=== PATIENT | female | born 1940 | race Caucasian/White ===

== ENCOUNTER 2021-03-04 16:09 | Observation (INO) | payer MEDICARE, MEDICAID ==
[~2021-03-04] VITALS: Ht 170.2 cm; Wt 108.8 kg
[2021-03-04 16:10] VITALS: BP 120/82
--- NOTE | 2021-03-04 16:23 | ED Neurological Problem ---
General Stated Complaint: DIZZNESS,NAUSEA,VOMITTING Source: patient, EMS Exam Limitations: no limitations History of Present Illness Date Seen by Provider: Mar 04, 2021 Time Seen by Provider: 16:10 Initial Comments 80yoF with PMH of afib on eliquis coming in via EMS due to dizziness. Last normal around noon today but she isn't exactly sure. She was eating a large lunch and she felt like she ate too much. Shortly after felt light headed and like the room was spinning. Began vomiting after this. Symptoms continued until she finally called and ambulance. Per EMS glucose was 100, EKG with afib. They said she was 89% on RA but had a lot of nail ukrainian on. The patient says she is never really had anything like this happen before. Chris es any headache, chest pain, shortness of breath, abdominal pain, current nausea, focal weakness or numbness, voice changes, or any other concerns. She did take her Eliquis this morning. Allergies and Home Medications Allergies Coded Allergies: No Known Drug Allergies (Unverified , 03/04/21) Patient Home Medication List Home Medication List Reviewed: Yes Review of Systems Review of Systems Constitutional: No chills, No fever Eyes: Denies Blurred Vision; Other (Vertigo) Ears, Nose, Mouth, Throat: denies ear pain Respiratory: No cough, No short of breath Cardiovascular: No chest pain Gastrointestinal: No abdominal pain; nausea, vomiting Genitourinary: no symptoms reported Musculoskeletal: no symptoms reported Skin: no symptoms reported Psychiatric/Neurological: No Symptoms Reported Endocrine: No Symptoms Reported Hematologic/Lymphatic: No Symptoms Reported All Other Systems Reviewed Negative Unless Noted: Yes Past Shpojfq-Cawpnc-Fvlato Hx Patient Social History Tobacco Use?: No Physical Exam Vital Signs Vital Signs - First Documented Capillary Refill : Height, Weight, BMI Height: '" Weight: lbs. oz. kg; BMI Method: General Appearance: WD/WN, no apparent distress HEENT: PERRL/EOMI, normal ENT inspection, pharynx normal, other (Lateral gaze nystagmus) Neck: non-tender, full range of motion, supple, normal inspection Respiratory: chest non-tender, lungs clear, normal breath sounds, no respi ratory distress, no accessory muscle use Cardiovascular: no edema, no murmur, irregularly irregular Gastrointestinal: normal bowel sounds, non tender, soft; No distended, No guarding, No rebound Back: normal inspection, no CVA tenderness, no vertebral tenderness Extremities: normal range of motion, non-tender, normal inspection, no pedal edema, no calf tenderness, normal capillary refill Neurologic/Psychiatric: cash person II-XII nml as tested, no motor/sensory deficits, alert, normal mood/affect, oriented x 3, other (Normal arulfr-xm-vlwe, normal sdwe-ow-uury, patient unable to stand because of dizziness, but is not preferentially falling to the other side) Crainal Nerves: normal hearing, normal speech, PERRL Coordination/Gait: normal finger to nose, normal gait Motor/Sensory: no motor deficit, no sensory deficit Skin: normal color, warm/dry Lymphatic: no adenopathy Progress/Results/Core Measures Results/Orders Lab Results Laboratory Tests Test 03/04/21 16:15 03/04/21 16:39 Range/Units White Blood Count 7.2 4.3-11.0 10^3/uL Red Blood Count 4.71 3.80-5.11 10^6/uL Hemoglobin 13.8 11.5-16.0 g/dL Hematocrit 42 35-52 % Mean Corpuscular Volume 89 80-99 fL Mean Corpuscular Hemoglobin 29 25-34 pg Mean Corpuscular Hemoglobin Concent 33 32-36 g/dL Red Cell Distribution Width 13.1 10.0-14.5 % Platelet Count 239 130-400 10^3/uL Mean Platelet Volume 10.6 9.0-12.2 fL Immature Granulocyte % (Auto) 0 % Neutrophils (%) (Auto) 65 42-75 % Lymphocytes (%) (Auto) 26 12-44 % Monocytes (%) (Auto) 8 0-12 % Eosinophils (%) (Auto) 1 0-10 % Basophils (%) (Auto) 0 0-10 % Neutrophils # (Auto) 4.7 1.8-7.8 X 10^3 Lymphocytes # (Auto) 1.9 1.0-4.0 X 10^3 Monocytes # (Auto) 0.5 0.0-1.0 X 10^3 Eosinophils # (Auto) 0.1 0.0-0.3 10^3/uL Basophils # (Auto) 0.0 0.0-0.1 10^3/uL Immature Granulocyte # (Auto) 0.0 0.0-0.1 10^3/uL Sodium Level 136 135-145 MMOL/L Potassium Level 4.0 3.6-5.0 MMOL/L Chloride Level 100 98-107 MMOL/L Carbon Dioxide Level 25 21-32 MMOL/L Anion Gap 11 5-14 MMOL/L Blood Urea Nitrogen 12 7-18 MG/DL Creatinine 0.88 0.60-1.30 MG/DL Estimat Glomerular Filtration Rate 62 BUN/Creatinine Ratio 14 Glucose Level 136 H 70-105 MG/DL Calcium Level 9.8 8.5-10.1 MG/DL Corrected Calcium 9.6 8.5-10.1 MG/DL Total Bilirubin 0.7 0.1-1.0 MG/DL Aspartate Amino Transf (AST/SGOT) 22 5-34 U/L Alanine Aminotransferase (ALT/SGPT) 17 0-55 U/L Alkaline Phosphatase 46 40-136 U/L Troponin I < 0.30 <0.30 NG/ML Pro-B-Type Natriuretic Peptide 1761.0 H <75.0 PG/ML Total Protein 7.1 6.4-8.2 GM/DL Albumin 4.2 3.2-4.5 GM/DL Prothrombin Time 16.1 H 12.2-14.7 SEC INR Comment 1.3 0.8-1.4 Activated Partial Thromboplast Time 29 24-35 SEC D-Dimer 0.36 0.00-0.49 UG/ML My Orders Orders - LAMAR OLSON MD Cbc With Automated Diff (03/04/21 16:23) Protime With Inr (03/04/21 16:23) Partial Thromboplastin Time (03/04/21 16:23) Comprehensive Metabolic Panel (03/04/21 16:23) Fibrin Degradation Products (03/04/21 16:23) Troponin I Fs (03/04/21 16:23) Ua Culture If Indicated (03/04/21 16:23) Chest 1 View Ap/Pa Only (03/04/21 16:23) Ekg Tracing (03/04/21 16:23) Ed Iv/Invasive Line Start (03/04/21 16:23) Ed Iv/Invasive Line Start (03/04/21 16:23) Vital Signs Stroke Patient Q15M (03/04/21 16:23) O2 (03/04/21 16:23) Monitor-Rhythm Ecg Trace Only (03/04/21 16:23) Dysphagia Screening Tool (03/04/21 16:23) Ct Angio Head/Neck (03/04/21 16:23) Probnp Fs (03/04/21 16:23) Lactated Ringers (Lr 1000 Ml Iv Solution (03/04/21 16:30) Iohexol Injection (Omnipaque 350 Mg/Ml 1 (03/04/21 17:30) Received Contrast (Hold Metformin- Contr (03/04/21 17:30) Sodium Chloride Flush (Catheter Flush Sy (03/04/21 17:30) Ns (Ivpb) (Sodium Chloride 0.9% Ivpb Bag (03/04/21 17:30) Medications Given in ED Current Medications Medications Dose Ordered Sig/Handy Route Start Time Stop Time Status Last Admin Dose Admin Iohexol 75 ml ONCE ONCE IV 03/04/21 17:30 03/04/21 17:31 DC 03/04/21 18:11 75 ML Sodium Chloride 10 ml NEEDED PRN IV 03/04/21 17:30 03/04/21 18:12 10 ML Sodium Chloride 100 ml ONCE ONCE IV 03/04/21 17:30 03/04/21 17:31 DC 03/04/21 18:12 100 ML Vital Signs/I&O 03/04/21 03/04/21 03/04/21 16:10 16:10 16:10 Temp 35.7 Pulse 78 78 Resp 16 17 B/P (MAP) 120/82 (95) 120/82 Pulse Ox 95 95 95 O2 Delivery Nasal Cannula Nasal Cannula O2 Flow Rate 2.00 2.00 Progress Progress Note : Progress Note 80-year-old female with above history coming in due to lightheadedness and difficulty standing because of this with episodes of vomiting. ABCs were intact and vitals were stable on presentation although she is chronically in A. fib. EKG showing her in A. fib. Initial blood pressure 129/71 here. EMS reports her glucose was 100. Neuro exam unremarkable other than the nystagmus as well as difficulty standing due to wanting to fall over because of dizziness. This does not localize to either side. Symptoms do worsen when I move her head which points to a peripheral cause of her vertigo. I did call and discussed the case with the neurologist on-call at [facility] Given the patient's time course of being right around 4 and half hours, her age, and she did take Eliquis, she recommended against tenecteplase at this time. She did recommend getting a CT/CTA of the head and neck to see if there is any large vessel occlusion. She also recommended admission for MRI of the brain to fully rule out stroke. CTA was negative for an LVO. I called and discussed the case with Dr. Montejo. The patient will be admitted under observation status to complete her MRI. Initial ECG Impression Date: Mar 04, 2021 Initial ECG Impression Time: 16:16 Initial ECG Rate: 80 Initial ECG Rhythm: A Fib/Flutter Comment Narrow QRS, normal axis, T wave flattening in the inferior and lateral leads Diagnostic Imaging Diagonstic Imaging: Xray, CT (CTA head and neck) Plain Films/CT/US/NM/MRI: chest [facility] [place] [place] NAME: SHAREE AUSTIN MED REC#: [id number] PT STATUS: REG ER : 1940 PHYSICIAN: LAMAR OLSON MD ADMIT DATE: 03/04/21/ER FS Draft Date of Exam:03/04/21 CHEST 1 VIEW AP/PA ONLY Indication: Weakness with irregular heart rate. No priors. 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 There is a calcified granuloma in the left lower lobe, heart size is grossly unremarkable. No overt vascular congestion. No focal consolidation, effusion or pneumothorax. Impression: Large retrocardiac hernia, no acute-appearing cardiopulmonary abnormality. Dictated on workstation # [id number] Dict: 03/04/21 1646 Trans: 03/04/211647 CVB [id number] Interpreted by: ODETTE UHGHES Electronically signed by: [facility] [place], [place] NAME: SHAREE AUSTIN MED REC#: [id number] PT STATUS: REG ER : 1940 PHYSICIAN: LAMAR OLSON MD ADMIT DATE: 03/04/21/ER FS Draft Date of Exam:03/04/21 CT ANGIO HEAD/NECK PROCEDURE: CT angiography of the head and CT angiography of the neck with and without contrast. TECHNIQUE: Contiguous noncontrast images were obtained from the skull base through the vertex. After intravenous contrast administration, helical CT angiography of the neck was performed. Source data was reformatted into 3D MIP projections. Delayed post contrast acquisition was also obtained. Auto Exposure Controls were utilized during the CT exam to meet ALARA standards for radiation dose reduction. INDICATION: Vertigo, constant COMPARISON: None FINDINGS: The precontrast CT of the head demonstrates no midline shift or mass effect. No CT evidence of acute territorial ischemia is seen. No acute intracranial hemorrhage is seen. The calvarium appears intact. Visualized paranasal sinuses are clear. There is mild atherosclerosis in the right common carotid artery without significant stenosis. The left common carotid artery also demonstrates no significant stenosis. There is mild atherosclerosis in the internal carotid arteries without significant stenosis. The right vertebral artery demonstrates mild atherosclerosis and is dominant. There is no stenosis or dissection. The left vertebral artery demonstrates tortuosity at the origin, but is otherwise widely patent. The anterior communicating artery is visible. The anterior cerebral arteries appear normal. The middle cerebral arteries appeared normal bilaterally. The right posterior communicating artery is robust and the left is faintly visible. The posterior cerebral arteries appear normal. The superior cerebellar arteries are normal. The basilar artery appears normal. No filling defects are seen in the dural sinuses to suggest a thrombus. No enhancing masses are seen. There are degenerative changes in the cervical spine but no acute fracture is seen. Soft tissues about the cervical spine demonstrate no acute abnormality. IMPRESSION: 1. Mild atherosclerosis with no significant stenosis or occlusion seen in the arteries of the head and neck. 2. No acute intracranial hemorrhage or CT evidence of acute territorial ischemia. Dictated on workstation # [id number] Dict: 03/04/211827 Trans: 03/04/211835 [facility] [id number] Interpreted by: FRANSICO BURGOS MD Electronically signed by: Departure Impression Primary Impression: Vertigo Additional Impression: Vomiting Qualified Codes: R11.2 - Nausea with vomiting, unspecified Disposition: 30 STILL A PATIENT Condition: Stable Admissions Decision to Admit Reason: Admit from ER (General) Decision to Admit/Date: Mar 04, 2021 Time/Decision to Admit Time: 17:40 Transfer Method of Transfer: EMS Departure-Patient Inst. Referrals: [facility] (PCP/Family) Primary Care Physician LAMAR OLSON MD Mar 04, 2021 16:23
[2021-03-04] MEDS ORDERED: LACTATED RINGERS 1,000 ML IV SCH (16:30)
[2021-03-04 16:37] LABS: BASOPHILS % (AUTO) 0 % (0-10); EOSINOPHILS % (AUTO) 1 % (0-10); HEMATOCRIT 42 % (35-52); HEMOGLOBIN 13.8 g/dL (11.5-16.0); LYMPHOCYTES % (AUTO) 26 % (12-44); MEAN CORPUSCULAR HEMOGLOBIN 29 pg (25-34); MEAN CORPUSCULAR HGB CONC 33 g/dL (32-36); MEAN CORPUSCULAR VOLUME 89 fL (80-99); MEAN PLATELET VOLUME 10.6 fL (9.0-12.2); MONOCYTES % (AUTO) 8 % (0-12); NEUTROPHILS % (AUTO) 65 % (42-75); PLATELET COUNT 239 10^3/uL (130-400); WHITE BLOOD COUNT 7.2 10^3/uL (4.3-11.0)
[2021-03-04 16:38] LABS: EOSINOPHILS # (AUTO) 0.1 10^3/uL (0.0-0.3); LYMPHOCYTES # (AUTO) 1.9 X 10^3 (1.0-4.0); MONOCYTES # (AUTO) 0.5 X 10^3 (0.0-1.0); NEUTROPHILS # (AUTO) 4.7 X 10^3 (1.8-7.8)
--- NOTE | 2021-03-04 16:48 | Diagnostic Imaging Report ---
Indication: Weakness with irregular heart rate. No priors. 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 There is a calcified granuloma in the left lower lobe, heart size is grossly unremarkable. No overt vascular congestion. No focal consolidation, effusion or pneumothorax. Impression: Large retrocardiac hernia, no acute-appearing cardiopulmonary abnormality. Dictated by: Dictated on workstation # [id number]
[2021-03-04 17:13] LABS: CHLORIDE 100 MMOL/L (98-107); SODIUM 136 MMOL/L (135-145)
[2021-03-04 17:14] LABS: ALANINE AMINOTRANSFERASE 17 U/L (0-55); ALBUMIN 4.2 GM/DL (3.2-4.5); ALKALINE PHOSPHATASE 46 U/L (40-136); BILIRUBIN,TOTAL 0.7 MG/DL (0.1-1.0); BUN/CREATININE RATIO 14; CALCIUM 9.8 MG/DL (8.5-10.1); CARBON DIOXIDE 25 MMOL/L (21-32); CREATININE SERUM 0.88 MG/DL (0.60-1.30); GFR ESTIMATED 62; GLUCOSE 136 MG/DL (70-105); TOTAL PROTEIN 7.1 GM/DL (6.4-8.2)
[2021-03-04 17:19] LABS: FIBRIN DEGRADATION PRODUCTS 0.36 UG/ML (0.00-0.49)
[2021-03-04 17:20] LABS: INR 1.3 (0.8-1.4); PROTHROMBIN TIME PATIENT 16.1 SEC (12.2-14.7)
[2021-03-04] MEDS ORDERED: HOLD METFORMIN - RECEIVED CONTRAST 20 ML VIAL IV SCH (17:30)
[2021-03-04] MEDS ORDERED: CATHETER FLUSH 10 ML SYR IV PRN (17:30)
[2021-03-04] MEDS ORDERED: NS 100 ML (IVPB) BAG IV ONE (17:30)
[2021-03-04] MEDS ORDERED: IOHEXOL 350 MG/ML 100 ML (OMNIPAQUE 350) VIAL IV ONE (17:30)
--- NOTE | 2021-03-04 18:37 | Diagnostic Imaging Report ---
PROCEDURE: CT angiography of the head and CT angiography of the neck with and without contrast. TECHNIQUE: Contiguous noncontrast images were obtained from the skull base through the vertex. After intravenous contrast administration, helical CT angiography of the neck was performed. Source data was reformatted into 3D MIP projections. Delayed post contrast acquisition was also obtained. Auto Exposure Controls were utilized during the CT exam to meet ALARA standards for radiation dose reduction. INDICATION: Vertigo, constant COMPARISON: None FINDINGS: The precontrast CT of the head demonstrates no midline shift or mass effect. No CT evidence of acute territorial ischemia is seen. No acute intracranial hemorrhage is seen. The calvarium appears intact. Visualized paranasal sinuses are clear. There is mild atherosclerosis in the right common carotid artery without significant stenosis. The left common carotid artery also demonstrates no significant stenosis. There is mild atherosclerosis in the internal carotid arteries without significant stenosis. The right vertebral artery demonstrates mild atherosclerosis and is dominant. There is no stenosis or dissection. The left vertebral artery demonstrates tortuosity at the origin, but is otherwise widely patent. The anterior communicating artery is visible. The anterior cerebral arteries appear normal. The middle cerebral arteries appeared normal bilaterally. The right posterior communicating artery is robust and the left is faintly visible. The posterior cerebral arteries appear normal. The superior cerebellar arteries are normal. The basilar artery appears normal. No filling defects are seen in the dural sinuses to suggest a thrombus. No enhancing masses are seen. There are degenerative changes in the cervical spine but no acute fracture is seen. Soft tissues about the cervical spine demonstrate no acute abnormality. IMPRESSION: 1. Mild atherosclerosis with no significant stenosis or occlusion seen in the arteries of the head and neck. 2. No acute intracranial hemorrhage or CT evidence of acute territorial ischemia. Dictated by: Dictated on workstation # [id number]
[2021-03-04 21:10] VITALS: BP 143/83
[2021-03-04] MEDS: APIXABAN 5 MG (ELIQUIS) TABLET PO SCH (21:42)
[2021-03-04] MEDS: CATHETER FLUSH 10 ML SYR IV SCH (21:43)
[2021-03-04 22:44] VITALS: BP 120/82
[2021-03-04] MEDS ORDERED: RT-ALBUTEROL SULF 2.5 MG/3 ML PRE-MIX VIAL INH PRN (23:00)
[2021-03-04 23:15] VITALS: BP 114/62
[2021-03-05 03:39] VITALS: BP 112/70
[2021-03-05] MEDS: LEVOTHYROXINE 112 MCG (LEVOTHROID) TAB PO SCH (05:03)
[2021-03-05] MEDS: CATHETER FLUSH 10 ML SYR IV SCH ×3 (05:03→19:54)
[2021-03-05 07:23] VITALS: BP 124/82
[2021-03-05] MEDS: APIXABAN 5 MG (ELIQUIS) TABLET PO SCH ×2 (08:24→19:53)
--- NOTE | 2021-03-05 10:29 | History & Physical ---
HPI History of Present Illness: 80 yo female came to ER after onset of dizziness, a little difficulty talking starting around 4 pm. Has had some milder episodes possibly in the past. She did have some nausea and vomiting, thinks she overloaded her stomach because when she got home she was really hungry, ate a lot in the afternoon. She denies chest pain. Had some pain in between her shoulder blades, but not yesterday, thought it was due to a chair. She states she has been out of bed here, and hasn't felt too dizzy, but doesn't feel quite right. Doesn't usually use any assistive devices for walking, but has thought about putting a high rise on her stool. She has a son that lives with her. She drives and does her own housework. Source: patient Date seen by provider: Mar 05, 2021 Time Seen by Provider: 10:27 Attending Physician Leighann Montejo MD PCP [place] [place] Consult Date of Admission Mar 04, 2021 at 20:50 Home Medications Home Medications Reviewed patient Home Medication Reconciliation performed by pharmacy medication reconciliations central sterile supply technician and/or nursing. Patients Allergies have been reviewed. 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: MODERNA Past Medical History PMHx: Hypothyroid Atrial fibrillation HTN SurgHx: Right Knee replacement Cholecystectomy Cataracts Eyelid skin excision Tonsillectomy Family Medical History Significant Family History: Heart Disease (father at age 84, heart failure), Cancer (mother with breast cancer at age 54) Review of Systems ([facility]) Constitutional: No fever EENTM: No nose congestion, No throat pain Respiratory: No cough, No short of breath Cardiovascular: No chest pain Gastrointestinal: No abdominal pain; constipation (chronic); No diarrhea; nausea, vomiting Genitourinary: No dysuria Musculoskeletal: No joint pain, No muscle pain Skin: No rash Reviewed Test Results Reviewed Test Results Lab Laboratory Tests Test 03/04/21 16:15 03/04/21 16:39 Range/Units White Blood Count 7.2 4.3-11.0 10^3/uL Red Blood Count 4.71 3.80-5.11 10^6/uL Hemoglobin 13.8 11.5-16.0 g/dL Hematocrit 42 35-52 % Mean Corpuscular Volume 89 80-99 fL Mean Corpuscular Hemoglobin 29 25-34 pg Mean Corpuscular Hemoglobin Concent 33 32-36 g/dL Red Cell Distribution Width 13.1 10.0-14.5 % Platelet Count 239 130-400 10^3/uL Mean Platelet Volume 10.6 9.0-12.2 fL Immature Granulocyte % (Auto) 0 % Neutrophils (%) (Auto) 65 42-75 % Lymphocytes (%) (Auto) 26 12-44 % Monocytes (%) (Auto) 8 0-12 % Eosinophils (%) (Auto) 1 0-10 % Basophils (%) (Auto) 0 0-10 % Neutrophils # (Auto) 4.7 1.8-7.8 X 10^3 Lymphocytes # (Auto) 1.9 1.0-4.0 X 10^3 Monocytes # (Auto) 0.5 0.0-1.0 X 10^3 Eosinophils # (Auto) 0.1 0.0-0.3 10^3/uL Basophils # (Auto) 0.0 0.0-0.1 10^3/uL Immature Granulocyte # (Auto) 0.0 0.0-0.1 10^3/uL Sodium Level 136 135-145 MMOL/L Potassium Level 4.0 3.6-5.0 MMOL/L Chloride Level 100 98-107 MMOL/L Carbon Dioxide Level 25 21-32 MMOL/L Anion Gap 11 5-14 MMOL/L Blood Urea Nitrogen 12 7-18 MG/DL Creatinine 0.88 0.60-1.30 MG/DL Estimat Glomerular Filtration Rate 62 BUN/Creatinine Ratio 14 Glucose Level 136 H 70-105 MG/DL Calcium Level 9.8 8.5-10.1 MG/DL Corrected Calcium 9.6 8.5-10.1 MG/DL Total Bilirubin 0.7 0.1-1.0 MG/DL Aspartate Amino Transf (AST/SGOT) 22 5-34 U/L Alanine Aminotransferase (ALT/SGPT) 17 0-55 U/L Alkaline Phosphatase 46 40-136 U/L Troponin I < 0.30 <0.30 NG/ML Pro-B-Type Natriuretic Peptide 1761.0 H <75.0 PG/ML Total Protein 7.1 6.4-8.2 GM/DL Albumin 4.2 3.2-4.5 GM/DL Prothrombin Time 16.1 H 12.2-14.7 SEC INR Comment 1.3 0.8-1.4 Activated Partial Thromboplast Time 29 24-35 SEC D-Dimer 0.36 0.00-0.49 UG/ML Radiology CTA head/neck 03/04/21: IMPRESSION: 1. Mild atherosclerosis with no significant stenosis or occlusion seen in the arteries of the head and neck. 2. No acute intracranial hemorrhage or CT evidence of acute territorial ischemia. Physical Exam-([facility]) Physical Exam Vital Signs VS - Last 72 Hours, by Label 03/04/21 03/04/21 03/04/21 03/04/21 16:10 16:10 16:10 19:18 Temp 35.7 Pulse 78 78 85 Resp 16 17 16 B/P (MAP) 120/82 (95) 120/82 115/68 Pulse Ox 95 95 95 97 O2 Delivery Nasal Cannula Nasal Cannula Room Air O2 Flow Rate 2.00 2.00 03/04/21 03/04/21 03/04/21 03/04/21 20:55 21:10 21:41 22:44 Temp 36.6 35.7 Pulse 98 92 78 Resp 20 B/P (MAP) 143/83 (103) Pulse Ox 92 93 95 O2 Delivery Room Air Room Air FiO2 28 03/04/21 03/05/21 03/05/21 03/05/21 23:15 01:00 03:39 07:00 Temp 37.2 35.7 Pulse 88 79 82 110 Resp 18 17 B/P (MAP) 114/62 (79) 112/70 (84) Pulse Ox 91 92 O2 Delivery Room Air Room Air 03/05/21 03/05/21 03/05/21 03/05/21 07:23 08:51 11:48 12:37 Temp 36.6 36.8 Pulse 83 81 121 Resp 20 18 B/P (MAP) 124/82 (96) 118/77 (91) Pulse Ox 91 93 O2 Delivery Room Air Room Air Room Air O2 Flow Rate 0.00 Capillary Refill : Less Than 3 Seconds General Appearance: WD/WN, no apparent distress Eyes: Bilateral Eye PERRL HEENT: PERRL/EOMI Respiratory: lungs clear, normal breath sounds Cardiovascular: no murmur, irregularly irregular Gastrointestinal: normal bowel sounds, non tender, soft Extremities: no pedal edema 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 No clear upper respiratory type symptoms to suggest other source. PT to eval for current function. (2) Atrial fibrillation Status: Chronic Assessment & Plan: Resume home cardizem and apixaban Qualifiers: Qualified Codes: I48.11 - Longstanding persistent atrial fibrillation (3) Hypothyroidism Status: Chronic Assessment & Plan: Resume home levothyroxine (4) DVT prophylaxis Status: Acute Assessment & Plan: Home apixaban LEIGHANN MONTEJO MD Mar 05, 2021 10:29
[2021-03-05] MEDS ORDERED: DILT120C85 PO (10:39)
[2021-03-05] MEDS ORDERED: APIX5TAB PO (10:41)
[2021-03-05] MEDS ORDERED: LEVO112T55 PO (10:41)
[2021-03-05] MEDS ORDERED: CALC625T29 PO (11:01)
[2021-03-05] MEDS ORDERED: DILT120T3 PO (11:01)
--- NOTE | 2021-03-05 11:27 | Physical Therapy Evaluation ---
PT Evaluation-General Medical Diagnosis Admission Date Mar 04, 2021 at 20:50 Medical Diagnosis: dizziness Onset Date: Mar 04, 2021 Therapy Diagnosis Therapy Diagnosis: impaired mobility, strength, endurance Precautions Precautions/Isolations: Standard Precautions Referral Physician: Gustabo Reason for Referral: Evaluation/Treatment Medical History Additional Medical History PMHx: Hypothyroid Atrial fibrillation HTN SurgHx: Right Knee- she can't recall if replacement, but thinks so Cholecystectomy Cataracts Eyelid skin excision Tonsillectomy Reviewed History: Yes Social History Home: Single Level Current Living Status: Children Entry Into Home: Stairs With Railing Prior Prior Level of Function SCALE: Activities may be completed with or without assistive devices. 2-Bwdbslxrkl-pkcuhjq completes the activity by him/herself with no assistance from a helper. 5-Set-up or Clean-up Assistance-helper sets up or cleans up; patient completes activity. Kennan assists only prior to or following the activity. 4-Supervision or Touching Assistance-helper provides verbal cues and/or touching/steadying and/or contact guard assistance as patient completes activity. Assistance may be provided throughout the activity or intermittently. 3-Partial/Moderate Assistance-helper does LESS THAN HALF the effort. Kennan lifts, holds or supports trunk or limbs, but provides less than half the effort. 2-Substantial/Maximal Assistance-helper does MORE THAN HALF the effort. Kennan lifts or holds trunk or limbs and provides more than half the effort. 6-Bsuhuiabu-rikctm does ALL the effort. Patient does none of the effort to complete the activity. Or, the assistance of 2 or more helpers is required for the patient to complete the activity. If activity was not attempted, code reason: 7-Patient Refused. 9-Not Applicable-not attempted and the patient did not perform the activity before the current illness, exacerbation or injury. 10-Not Attempted due to Environmental Limitations-(lack of equipment, weather restraints, etc.). 88-Not Attempted due to Medical Conditions or Safety Concerns. Bed Mobility: 6 Transfers (B,C,W/C): 6 Gait: 6 Stairs: 6 Indoor Mobility (Ambulation): Independent Stairs: Independent PT Evaluation-Current Subjective Patient in bed pre tx, agrees to PT, has no complaints of pain. Pt/Family Goals "to improve her dizziness" Objective Patient Orientation: Person, Place, Situation ROM/Strength ROM Lower Extremities WNL Strength Lower Extremities LLE grossly 5/5, RLE grossly 4/5 Sensory Hearing: Functional Sensation Right Lower Extremit: Intact Sensation Left Lower Extremity: Intact Transfers Roll Left to Right (QC): 6 Sit to Lying (QC): 6 Lying to Sitting/Side of Bed(Q: 6 Sit to Stand (QC): 4 Chair/Zzk-hw-Oodse Xfer(QC): 4 Patient feels a little dizzy after sitting but improved in a couple of minutes b ut not completely, SBA for sit to stand and transfers Gait Does the Patient Walk?: Yes Mode of Locomotion: Walk Anticipated Mode of Locomotion: Walk Walk 10 feet (QC): 4 Walk 50 ft with 2 Turns(QC): 4 Walk 150 ft (QC): 4 Distance: 200' Gait Assistive Device: FWW Comments/Gait Description SBA, slow but steady ambulation Assessment/Needs Patient in recliner post tx with nurse call, phone, tray, all needs met. Patient has impaired mobility, strength, endurance. SBA with standing and ambulation Rehab Potential: Fair PT Fdc Goals Fdc Goals PT Transcriber Goals Time Frame: Mar 12, 2021 Roll Left & Right (QC): 6 Sit to Lying (QC): 6 Lying-Sitting on Side/Bed(QC): 6 Sit to Stand (QC): 6 Chair/Wpe-yy-Biqfr Xfer(QC): 6 Walk 10 feet (QC): 6 Walk 50ft with 2 Turns (QC): 6 Walk 150 ft (QC): 6 PT Plan Problem List Problem List: Activity Tolerance, Functional Strength, Safety, Balance, Gait, Transfer Treatment/Plan Treatment Plan: Continue Plan of Care Treatment Plan: Education, Functional Activity Fatimah, Functional Strength, Gait, Safety, Therapeutic Exercise, Transfers Treatment Duration: Mar 12, 2021 Frequency: 6 times per week Estimated Hrs Per Day: .25 hour per day Patient and/or Family Agrees t: Yes Safety Risks/Education Patient Education: Gait Training, Transfer Techniques, Correct Positioning, Safety Issues Teaching Recipient: Patient Teaching Methods: Demonstration, Discussion Response to Teaching: Reinforcement Needed Discharge Recommendations Plan Patient will perform bed mobility and transfer training, balance and endurance training, functional strengthening, stair training, gait training, and edu cation, to improve functional mobility and independence at home. Therapy Discharge Recommendati: Home & Family, Post Acute PT Time/GCodes Time In: 1108 Time Out: 1118 Total Billed Treatment Time: 10 Total Billed Treatment 1 visit EVL ADELINA THORPE PT Mar 05, 2021 11:27
[2021-03-05 11:48] VITALS: BP 118/77
--- NOTE | 2021-03-05 11:57 | Diagnostic Imaging Report ---
PROCEDURE: MR imaging of the brain without contrast. TECHNIQUE: Multiplanar, multisequence MR imaging of the brain was performed without contrast. INDICATION: Dizzy spells. Evaluate for stroke. COMPARISON: 03/04/2021. FINDINGS: No acute ischemia, mass, or hemorrhage. Scattered chronic microvascular disease is seen in the periventricular and subcortical white matter. The ventricles and cortical sulci are mildly prominent. The basilar cisterns are symmetric and unremarkable. The sellar and suprasellar regions have a normal appearance. The brainstem and posterior fossa are unremarkable. The paranasal sinuses and mastoid air cells demonstrate normal signal characteristics. The globes and orbits are symmetric and unremarkable. The scalp and calvarium have a normal appearance. IMPRESSION: 1. No acute ischemia, mass, or hemorrhage. 2. Generalized parenchymal volume loss with scattered chronic microvascular disease. Dictated by: Dictated on workstation # [id number]
[2021-03-05] MEDS ORDERED: MECLIZINE 25 MG (ANTIVERT) TAB PO PRN (12:30)
[2021-03-05 16:00] VITALS: BP 107/68
[2021-03-05 19:23] VITALS: BP 107/68
[2021-03-06] VITALS: BP 93/52
[2021-03-06 04:00] VITALS: BP 107/73
[2021-03-06] MEDS: CATHETER FLUSH 10 ML SYR IV SCH (04:31)
[2021-03-06] MEDS: LEVOTHYROXINE 112 MCG (LEVOTHROID) TAB PO SCH (04:31)
[2021-03-06 07:30] VITALS: BP 119/59
[2021-03-06] MEDS: APIXABAN 5 MG (ELIQUIS) TABLET PO SCH (08:33)
[2021-03-06] MEDS ORDERED: dilTIAZem120 MG (CARDIZEM CD) CAP PO SCH (09:00)
--- NOTE | 2021-03-06 11:31 | Discharge Summary ---
Discharge Summary Hospital Course Problems/Diagnosis: (1) Vertigo Status: Acute Assessment & Plan: CTA head okay, MRI done due to possibility of central vertigo and showed no acute findings. No clear upper respiratory type symptoms to suggest other source. PT eval done, able to ambulate and denied dizziness on day of d/c, reported having walker at home already. (2) Atrial fibrillation Status: Chronic Assessment & Plan: Resume home cardizem and apixaban Qualifiers: Qualified Codes: I48.11 - Longstanding persistent atrial fibrillation (3) Hypothyroidism Status: Chronic Assessment & Plan: Resume home levothyroxine Hospital Course Date of Admission: Mar 04, 2021 at 20:50 Admission Diagnosis : Family Physician/Provider: [facility] Date of Discharge: 03/06/21 Discharge Diagnosis: Dizziness Atrial fibrillation Hypothyroidism Hospital Course: See problem list Labs and Pending Lab Test: Home Meds Active Reported Diltiazem HCl 120 Mg Tablet 120 Mg PO HS Fiber Tabs (Calcium Polycarbophil) 625 Mg Tablet 2,500 Mg PO HS TAKES 4 (625MG) TABS Eliquis (Apixaban) 5 Mg Tablet 5 Mg PO BID Levothyroxine Sodium 112 Mcg Tablet 112 Mcg PO DAILY Assessment/Pt DC Instructions Follow up with primary physician within one week of discharge. Discharge Diet: Cardiac Diet Activity as Tolerated: Yes Discharge Physical Examination Allergies: Coded Allergies: No Known Drug Allergies (Unverified , 03/04/21) General Appearance: No Apparent Distress, WD/WN HEENT: PERRL/EOMI Respiratory: Lungs Clear, Normal Breath Sounds Cardiovascular: Irregularly Irregular Skin: Normal Color, Warm/Dry Neurologic/Psychiatric: Alert, Oriented x3, tent assembler II-XII Norm as Tested; No Abnormal Cerebellar Tests, No Motor Weakness LEIGHANN PAGE MD Mar 06, 2021 11:31
[2021-03-06 11:55] VITALS: BP 125/79
--- NOTE | 2021-03-06 12:15 | Physical Therapy Daily Note ---
PT Daily Note-Current Subjective Patient sitting in chair upon PT arrival, agreeable to treatment. Reports she may be leaving today, but is unsure. Mental Status Patient Orientation: Person, Place, Time, Situation Transfers SCALE: Activities may be completed with or without assistive devices. 8-Pfzadzqvuy-biyiycl completes the activity by him/herself with no assistance from a helper. 5-Set-up or Clean-up Assistance-helper sets up or cleans up; patient completes activity. Gary assists only prior to or following the activity. 4-Supervision or Touching Assistance-helper provides verbal cues and/or touching/steadying and/or contact guard assistance as patient completes activity. Assistance may be provided throughout the activity or intermittently. 3-Partial/Moderate Assistance-helper does LESS THAN HALF the effort. Gary lifts, holds or supports trunk or limbs, but provides less than half the effort. 2-Substantial/Maximal Assistance-helper does MORE THAN HALF the effort. Gary lifts or holds trunk or limbs and provides more than half the effort. 4-Zzhvudoht-cxzjyw does ALL the effort. Patient does none of the effort to complete the activity. Or, the assistance of 2 or more helpers is required for the patient to complete the activity. If activity was not attempted, code reason: 7-Patient Refused. 9-Not Applicable-not attempted and the patient did not perform the activity before the current illness, exacerbation or injury. 10-Not Attempted due to Environmental Limitations-(lack of equipment, weather restraints, etc.). 88-Not Attempted due to Medical Conditions or Safety Concerns. Roll Left & Right (QC): 6 Sit to Lying (QC): 6 Lying to Sitting/Side of Bed(Q: 6 Sit to Stand (QC): 6 Chair/Brz-ui-Tbgtz Xfer(QC): 6 Toilet Transfer (QC): 6 Gait Training Does the Patient Walk?: Yes Distance: 400 feet Walk 10 feet (QC): 6 Walk 50 ft with 2 Turns(QC): 6 Walk 150 ft (QC): 6 Gait Assistive Device: FWW Assessment Current Status: Excellent Progress Patient tolerated treatment well. Demonstrates good overall improvement in mobility and gait. Patient performs all observed bed mobility and transfers with I. She ambulates 400 feet with FWW, with mod I and verbal cues for progression. Patient in chair post treatment with all needs met, nursing notified, call light in hand. PT Long-Term Goals Long-Term Goals PT Long-Term Goals Time Frame: Mar 12, 2021 Roll Left & Right (QC): 6 Sit to Lying (QC): 6 Lying-Sitting on Side/Bed(QC): 6 Sit to Stand (QC): 6 Chair/Ebw-co-Byegd Xfer(QC): 6 Walk 10 feet (QC): 6 Walk 50ft with 2 Turns (QC): 6 Walk 150 ft (QC): 6 PT Plan Treatment/Plan Treatment Plan: Continue Plan of Care Treatment Plan: Education, Functional Activity Fatimah, Functional Strength, Gait, Safety, Therapeutic Exercise, Transfers Treatment Duration: Mar 12, 2021 Frequency: 6 times per week Estimated Hrs Per Day: .25 hour per day Patient and/or Family Agrees t: Yes Safety Risks/Education Patient Education: Gait Training Teaching Recipient: Patient Teaching Methods: Demonstration, Discussion Response to Teaching: Verbalize Understanding, Return Demonstration Time/GCodes Time In: 1010 Time Out: 1020 Total Billed Treatment Time: 10 Total Billed Treatment Visit, Gait JORGE LUIS SANCHEZ PT Mar 06, 2021 12:15
[2021-03-06 14:00] VITALS: BP 125/79
== END 2021-03-06 14:00 | disposition home or self-care (01) ==
LOC: ER FS 16:12 → 4TH 20:50
PROVIDERS: ADMIT Family Medicine; ATTEND Family Medicine
DX: R42 Dizziness and giddiness (principal); I48.11 Longstanding persistent atrial fibrillation; E03.9 Hypothyroidism, unspecified; I45.81 Long QT syndrome; I10 Essential (primary) hypertension; R11.2 Nausea with vomiting, unspecified; Z79.890 Hormone replacement therapy; Z79.01 Long term (current) use of anticoagulants; Z79.899 Other long term (current) drug therapy
CPT/HCPCS: 36415; 70496; 70498; 70551; 71045; 80053; 83880; 84484; 85025; 85379; 85610; 85730; 93005; 93041; 94760; 97116; 97161; 99284; G0378